=== PATIENT | female | born 1955 | race Hispanic/Latino ===

== ENCOUNTER 2021-12-24 16:23 | Emergency (ER) | payer BC, OTHER ==
[~2021-12-24] VITALS: Ht 162.6 cm; Wt 96.2 kg
== END 2021-12-24 18:16 | disposition home or self-care (01) ==
LOC: FSED 16:53
DX: M25.562 Pain in left knee (principal); S80.02XA Contusion of left knee, initial encounter; W01.0XXA Fall on same level from slipping, tripping and stumbling without subsequent striking against object, initial encounter; Y93.01 Activity, walking, marching and hiking; Y92.89 Other specified places as the place of occurrence of the external cause
CPT/HCPCS: 99282